=== PATIENT | male | born 1970 | race Caucasian/White ===

== ENCOUNTER 2018-01-29 13:56 | Emergency (ER) | payer OTHER ==
[~2018-01-29] VITALS: Ht 177.8 cm; Wt 94.3 kg
[2018-01-29 16:26] VITALS: BP 130/78
[2018-01-29] MEDS ORDERED: TAMSULOSIN HCL0.4 M1 PO (16:39)
[2018-01-29] MEDS ORDERED: OXYCODONE-ACET1 EACH PO (16:39)
--- NOTE | 2018-01-29 16:40 | ED GI/GU/ABDOMINAL COMPLAINT ---
History of Present Illness General Chief Complaint: Abdominal Pain/Flank Pain Stated Complaint: LT MID BACK SHARP SHOOTING PAIN Source: patient Exam Limitations: no limitations Vital Signs & Intake/Output Vital Signs & Intake/Output Vital Signs Date Time Temp Pulse Resp B/P B/P Pulse O2 O2 Flow FiO2 Mean Ox Delivery Rate 01/29 1626 97.3 62 18 130/78 97 Room Air Room Air ED Intake and Output 01/30 0000 01/29 1200 Intake Total Output Total Balance Patient 94.347 kg Weight Allergies Coded Allergies: No Known Allergies (01/29/18) Reconcile Medications Oxycodone HCl/Acetaminophen (Oxycodone-Acetaminophen 5-325) 5 MG-325 MG TABLET 1 TAB PO BIDP PRN STONE Tamsulosin HCl 0.4 MG CAP.ER.24H 1 CAP PO DAILY STONE Triage Note: 47M WITH LEFT FLANK PAIN RADIATING INTO ABDOMEN SINCE 1PM. STATES IT WAS SHARP AND SHOOTING AND TOOK HIS BREATH AWAY. HX NEPHROLITHIASIS AND STATES PAIN IS SIMILAR. +N/-V/-D AND LIGHTHEADED AT INITIAL ONSET. DENIES DYSURIA OR HEMATURIA. URINE CUP PROVIDED. MEDICATED WITH TORADOL AND ZOFRAN IN TRIAGE OK'ED BY DR SERRANO Triage Nurses Notes Reviewed? yes HPI: 47M no significant PMH presenting with acute onset of right flank pain radiating to right inguinal area, severe, intermittent, 10/10. He came to ER and was given Toradol, and pain subsided. He had kidney stones before, and presented similarly. He denies fever, chills, headache, sore throat, chest pain, SOB, diarrhea, dysuria, hematuria. He is currently asymptomatic and has no complaints. He has not noticed that he passed any stones. Past History Travel History Traveled to [place] past 21 day No Medical History Any Pertinent Medical History? see below for history Renal: NEPHROLITHIASIS Surgical History Surgical History: non-contributory Psychosocial History What is your primary language Kiswahili Tobacco Use: Refused to answer Family History Hx Contributory? No Review of Systems Review of Systems Constitutional: Reports: no symptoms. EENTM: Reports: no symptoms. Respiratory: Reports: no symptoms. Cardiovascular: Reports: no symptoms. GI: Reports: no symptoms. Genitourinary: Reports: no symptoms. Musculoskeletal: Reports: no symptoms. Skin: Reports: no symptoms. Neurological/Psychological: Reports: no symptoms. Hematologic/Endocrine: Reports: no symptoms. Immunologic/Allergic: Reports: no symptoms. All Other Systems: Reviewed and Negative Physical Exam Physical Exam General Appearance: well developed/nourished, no apparent distress Head: atraumatic, normal appearance Eyes: Bilateral: normal appearance. Ears, Nose, Throat, Mouth: hearing grossly normal, moist mucous membrane Neck: normal inspection, full range of motion Respiratory: normal breath sounds, no respiratory distress Cardiovascular: regular rate/rhythm Gastrointestinal: soft, non-tender Rectal: deferred Back: normal inspection, normal range of motion, no CVA tenderness Extremities: normal range of motion Neurologic/Psych: awake, alert, oriented x 3, normal mood/affect Skin: intact, normal color, warm/dry Core Measures ACS in differential dx? No Sepsis Present: No Sepsis Focused Exam Completed? No Progress Differential Diagnosis: appendicitis, biliary colic, diverticulitis, hernia, orchitis, pancreatitis, peptic ulcer, PUD/GERD, perforated viscous, pyelonephritis, ureterolithiasis, urethritis, UTI/pyelo Plan of Care: Orders Procedure Date/time Status URINALYSIS 01/29 1416 Complete Laboratory Tests 01/29/18 1425: Urine Color YEL, Urine Clarity HAZY H, Urine pH 6.0, Ur Specific [place] >= 1.030, Urine Protein NEG, Urine Ketones NEG, Urine Nitrite NEG, Urine Bilirubin NEG, Urine Urobilinogen 0.2, Ur Leukocyte Esterase NEG, Ur Microscopic SEDIMENT EXAMINED, Urine RBC >75 H, Urine WBC RARE, Ur Epithelial Cells RARE, Urine Bacteria FEW H, Hyaline Casts RARE H, Urine Mucus FEW, Urine Hemoglobin LARGE H, Urine Glucose NEG Symptoms have resolved. Patient wishes to go home. Will discharge home with Flomax and outpatient follow up. Initial ED EKG: none Departure Departure Disposition: HOME OR SELF CARE Condition: Stable Clinical Impression Primary Impression: Nephrolithiasis Referrals: Unknown (PCP/Family) Additional Instructions: Follow up with your PCP. Drink plenty of water. If you have new, worsening, or recurring symptoms, return to ER. Departure Forms: Customer Survey General Discharge Information Prescriptions: Current Visit Scripts Tamsulosin HCl 1 CAP PO DAILY #7 CAP Oxycodone HCl/Acetaminophen (Oxycodone-Acetaminophen 5-325) 1 TAB PO BIDP PRN STONE #10 TAB
== END 2018-01-29 17:03 ==
LOC: ERH 13:56
DX: N20.0 Calculus of kidney (principal)
CPT/HCPCS: 81001; 96372; 96374; J1885